=== PATIENT | male | born 1980 | race Caucasian/White ===

== ENCOUNTER 2017-01-28 00:33 | Emergency (ER) | payer MEDICAID, OTHER ==
[~2017-01-28] VITALS: Ht 167.6 cm; Wt 69.5 kg
[2017-01-28 00:36] VITALS: Ht 167.6 cm; Wt 69.5 kg
--- NOTE | 2017-01-28 01:46 | ERD ---
ER Documentation Chief Complaint Date/Time DATE: 01/28/17 TIME: 01:44 Chief Complaint pt reports cleaningwindows and r arm went through HPI 36-year-old male presents to emergency department for complaints of abrasions on the bilateral upper arms, possible foreign body sensation, patient was complaining last broke, some of them went into his skin. Patient does complain of pain, worsening pain, 6/10 is Accompanying the other symptoms. Patient's last tetanus immunization was one year ago. ROS All systems reviewed and are negative except as per history of present illness. Medications Home Meds Reported Medications [none] Unknown Strength No Conflict Check 01/28/17 Allergies Allergies: Coded Allergies: No Known Allergy (Unverified , 01/28/17) PMhx/Soc Last tetanus immunization was one year ago. Medical and Surgical Hx: pt denies Medical Hx, pt denies Surgical Hx Hx Alcohol Use: No Hx Substance Use: No Smoking Status: Current every day smoker FmHx Family History: No coronary disease, No diabetes, No other Physical Exam Vitals Vital Signs Date Time Temp Pulse Resp B/P Pulse Ox O2 Delivery O2 Flow Rate FiO2 01/28/17 00:36 98.3 97 16 107/71 97 Physical Exam GENERAL: The patient is well developed and appropriate for usual state of health, in no apparent distress. CHEST: Clear to auscultation bilaterally. There are no rales, wheezes or rhonchi. HEART: Regular rate and rhythm. No murmurs, clicks, rubs or gallops. No S3 or S4. ABDOMEN: Soft, nontender and nondistended. Good bowel sounds. No rebound or guarding. No gross peritonitis. No gross organomegaly or masses. No Lim sign or McBurney point tenderness. BACK: No midline or flank tenderness. EXTREMITIES: Equal pulses bilaterally. There is no peripheral clubbing, cyanosis or edema. No focal swelling or erythema. Full range of motion. Grossly neurovascularly intact. NEURO: Alert and oriented. Cranial nerves 2-12 intact. Motor strength in all 4 extremities with 5/5 strength. Sensation grossly intact. Normal speech and gait. SKIN: Noted multiple abrasions and right upper and left upper arm. No palpable foreign body. There is no apparent rash or petechia. The skin is warm and dry. HEMATOLOGIC AND LYMPHATIC: There is no evidence of excessive bruising or lymphedema. No gross cervical, axillary, or inguinal lymphadenopathy. Results 24 hrs PROCEDURE: Right elbow. CLINICAL INDICATION: Pain. TECHNIQUE: 3 views including AP, lateral and oblique views of the right elbow were obtained. COMPARISON: None. FINDINGS: There is no fracture, dislocation or bone destruction. The joint spaces are within normal limits. Bone mineralization is within normal limits. There is no radiopaque foreign body or abnormal calcification. IMPRESSION: No evidence of fracture or radiopaque foreign body. .Rafael Eldridge MD, MD Date Time Electronically viewed and signed by .Rafael Eldridge MD, MD on 01/28/2017 02:12 .T/ CC: STEPHENIE COSTELLO OVERCOILER PROCEDURE: Left forearm. CLINICAL INDICATION: Pain. TECHNIQUE: Two views including AP and lateral views of the left forearm were obtained. COMPARISON: None. FINDINGS: There is no fracture, dislocation or bone destruction. The joint spaces are within normal limits. Bone mineralization is within normal limits. There is no radiopaque foreign body or abnormal calcification. IMPRESSION: No evidence of fracture or radiopaque foreign body. .Rafael Eldridge MD, MD Date Time Electronically viewed and signed by .Rafael Eldridge MD, MD on 01/28/2017 02:13 .T/ CC: STEPHENIE COSTELLO OVERCOILER Procedures/MDM Medical decision making: Patient's symptoms most likely is consistent with abrasions, no foreign body noted. Patient will be given a prescription for Keflex to prevent infection. No symptoms of any fractures. No symptoms of any neurovascular compromise. Patient was advised to do wound care on affected area , return to emergency department for any symptoms of infection. Follow-up with primary care doctor in 2-3 days. Departure Diagnosis: Primary Impression: Abrasions of multiple sites Condition: Stable Patient Instructions: STEPHENIE Benavides NP Jan 28, 2017 01:46
--- NOTE | 2017-01-28 02:12 | RADRPT ---
PROCEDURE: Right elbow. CLINICAL INDICATION: Pain. TECHNIQUE: 3 views including AP, lateral and oblique views of the right elbow were obtained. COMPARISON: None. FINDINGS: There is no fracture, dislocation or bone destruction. The joint spaces are within normal limits. Bone mineralization is within normal limits. There is no radiopaque foreign body or abnormal calcif ication. IMPRESSION: No evidence of fracture or radiopaque foreign body. .Rafael Eldridge MD, MD Date Time Electronically viewed and signed by .Rafael Eldridge MD, on 01/28/2017 02:12 .T/
--- NOTE | 2017-01-28 02:13 | RADRPT ---
PROCEDURE: Left forearm. CLINICAL INDICATION: Pain. TECHNIQUE: Two views including AP and lateral views of the left forearm were obtained. COMPARISON: None. FINDINGS: There is no fracture, dislocation or bone destruction. The joint spaces are within normal limits. Bone mineralization is within normal limits. There is no radiopaque foreign body or abnormal calcif ication. IMPRESSION: No evidence of fracture or radiopaque foreign body. .Rafael Eldridge MD, MD Date Time Electronically viewed and signed by .Rafael Eldridge MD, on 01/28/2017 02:13 .T/
[2017-01-28] MEDS ORDERED: CEPH-443 PO (03:22)
== END 2017-01-28 03:49 | disposition home or self-care (01) ==
LOC: FTE 00:33 → E/R 03:49
DX: S40.811A Abrasion of right upper arm, initial encounter (principal); S40.812A Abrasion of left upper arm, initial encounter; F17.210 Nicotine dependence, cigarettes, uncomplicated; X58.XXXA Exposure to other specified factors, initial encounter; Y92.9 Unspecified place or not applicable
CPT/HCPCS: 73080; 73090; Z7502